=== PATIENT | female | born 2005 | race Hispanic/Latino ===

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

== ENCOUNTER 2024-08-23 19:05 | Emergency (ER) | payer SELFPAY ==
[~2024-08-23] VITALS: Ht 160 cm; Wt 48.5 kg
[2024-08-23 19:14] VITALS: PULSE 132; RESP 18; TEMP 100.4
[2024-08-23] MEDS ORDERED: ONDANSETRON HCL 4 MG ORAL DISINTEGRATING TAB PO ONE (19:45)
[2024-08-23] MEDS: ONDANSETRON HCL INJ 2MG/ML 2ML 2 MG/ML VIAL IV STA (20:26)
[2024-08-23] MEDS: FAMOTIDINE 20 MG/2 ML VIAL IV STA (20:26)
[2024-08-23] MEDS: SODIUM CHLORIDE 0.9% 1000ML 1,000 ML IV ONE (20:27)
[2024-08-23] MEDS: KETOROLAC TROMETHAMINE 30 MG/ML VIAL IV STA (20:27)
[2024-08-23] MEDS ORDERED: ONDANSETRON HCL INJ 2MG/ML 2ML 2 MG/ML VIAL ONE (20:28)
[2024-08-23] MEDS ORDERED: FAMOTIDINE 20 MG/2 ML VIAL IV ONE (20:29)
[2024-08-23] MEDS: ACETAMINOPHEN 325 MG TAB PO ONE (21:33)
[2024-08-23] MEDS ORDERED: ONDANSETRON ODT4 MG PO (21:37)
[2024-08-23] MEDS: ONDANSETRON HCL 4 MG ORAL DISINTEGRATING TAB PO ONE (21:41)
[2024-08-23 21:54] VITALS: BP 100/68; PULSE 102; RESP 18; TEMP 98.6; O2SAT 98
== END 2024-08-23 21:54 | disposition home or self-care (01) ==
LOC: FSED 19:30
DX: R11.2 Nausea with vomiting, unspecified (principal); E86.1 Hypovolemia; E86.0 Dehydration; M54.50 Low back pain, unspecified; F41.9 Anxiety disorder, unspecified; Z11.52 Encounter for screening for COVID-19
CPT/HCPCS: 0223U; 80048; 80076; 81003; 81025; 85025; 86308; 87400; 96360; 96374; 96375; 99283; J1885; J2405; J7030; Q0162